=== PATIENT | male | born 1945 | race Caucasian/White ===

== ENCOUNTER → 2016-06-21 | Outpatient (CLI) | payer OTHER ==
[2016-06-21 11:23] LABS: ALT/SGPT 30 U/L (12-78); AST/SGOT 19 U/L (15-37); BLOOD UREA NITROGEN 20 mg/dl (7-18); BUN/CREATININE RATIO 18.3 (10-20); CALCIUM 9.1 mg/dl (8.5-10.1); CARBON DIOXIDE 27 mmol/L (21-32); CHLORIDE 108 mmol/L (98-107); CHOLESTEROL 157 mg/dl (0-200); GLUCOSE 87 mg/dl (70-99); POTASSIUM 4.1 mmol/L (3.5-5.1); SODIUM 145 mmol/L (136-145); TRIGLYCERIDES 85 mg/dl (0-150); VERY LOW DENSITY LIPOPROT CALC 17 mg/dl
[2016-06-21 11:26] LABS: ALB/GLOB RATIO 1.1 (0.9-2); ALKALINE PHOSPHATASE 70 U/L (45-117); CHOLESTEROL/HDL RATIO 2.4; HDL CHOLESTEROL 66 mg/dl; LDL CHOLESTEROL CALCULATED 74 mg/dl
== END | disposition home or self-care (01) ==
LOC: C.LABBC 08:03
PROVIDERS: ATTEND Family Medicine
DX: E78.00 Pure hypercholesterolemia, unspecified (principal); R97.20 Elevated prostate specific antigen [PSA]; N40.0 Benign prostatic hyperplasia without lower urinary tract symptoms

== ENCOUNTER → 2017-01-10 | Outpatient (CLI) | payer OTHER ==
[2017-01-10 11:26] LABS: ALT/SGPT 31 U/L (12-78); AST/SGOT 20 U/L (15-37); BLOOD UREA NITROGEN 24 mg/dl (7-18); BUN/CREATININE RATIO 22.2 (10-20); CALCIUM 9.1 mg/dl (8.5-10.1); CARBON DIOXIDE 26 mmol/L (21-32); CHLORIDE 110 mmol/L (98-107); CHOLESTEROL 142 mg/dl (0-200); GLUCOSE 88 mg/dl (70-99); POTASSIUM 4.4 mmol/L (3.5-5.1); SODIUM 141 mmol/L (136-145); TRIGLYCERIDES 90 mg/dl (0-150); VERY LOW DENSITY LIPOPROT CALC 18 mg/dl
[2017-01-10 11:29] LABS: ALB/GLOB RATIO 1.2 (0.9-2); ALKALINE PHOSPHATASE 66 U/L (45-117); CHOLESTEROL/HDL RATIO 2.4; HDL CHOLESTEROL 59 mg/dl; LDL CHOLESTEROL CALCULATED 65 mg/dl
== END | disposition home or self-care (01) ==
LOC: C.LABBC 07:49
PROVIDERS: ATTEND Urology
DX: E78.00 Pure hypercholesterolemia, unspecified (principal); R97.20 Elevated prostate specific antigen [PSA]

== ENCOUNTER → 2017-05-04 | Outpatient (CLI) | payer OTHER | END | disposition home or self-care (01) | LOC: C.PATHSPEC 17:17 | PROVIDERS: ATTEND Urology | DX: R97.20 Elevated prostate specific antigen [PSA] (principal); C61 Malignant neoplasm of prostate ==

== ENCOUNTER → 2017-05-18 | Outpatient (CLI) | payer OTHER ==
--- NOTE | 2017-05-18 19:47 | DIAGNOSTIC IMAGING REPORT ---
BONE SCAN WHOLE BODY CLINICAL HISTORY: Prostate cancer. COMPARISON STUDY: None. TECHNIQUE: 27 mCi of technetium 99m MDP was injected IV at 12:50 PM on May 18, 2017. 3 hour delayed phase imaging was performed in the anterior and posterior projections. FINDINGS: Expected soft tissue and renal uptake is present. There is moderate focal uptake within the left posterior aspect of the cervical spine at approximately the C5 level. This is likely degenerative. Mild uptake within the lumbar spine is degenerative and likely related to mild levoscoliosis. There is a small focus of uptake which projects over the left inferior pubic ramus. No corresponding lesion was shown on MRI of February 17, 2017. This is probably artifactual. Uptake within the shoulders, right greater than left, is degenerative. IMPRESSION: 1. No scintigraphic evidence for skeletal metastatic disease. 2. Small focus of moderate uptake within left posterior aspect of the cervical spine at approximately the C5 level which is likely degenerative. 3. Small focus of mild uptake projecting over the left inferior pubic ramus. This focus appears to extend beyond the bone and is therefore likely artifactual. Electronically signed by: Binh Maire M.D. 05/18/2017 7:45 PM Dictated Date/Time: 05/18/2017 6:54 PM
== END | disposition home or self-care (01) ==
LOC: C.NUCL 12:30
PROVIDERS: ATTEND Urology
DX: C61 Malignant neoplasm of prostate (principal)